=== PATIENT | male | born 1985 | race African-American/Black ===

== ENCOUNTER 2016-09-24 21:06 | Emergency (ER) | payer SELFPAY ==
[2016-09-24] MEDS ORDERED: Bicillin LA 1.2 MILLION UNITS/2 ML SYRINGE ONE (21:33)
[2016-09-24] MEDS ORDERED: Acetaminophen 500 MG TAB ONE (21:50)
[2016-09-24 21:57] LABS: Bilirubin Negative (Negative); Blood, Urine Negative (Negative); Clarity Clear (Clear); Glucose, Urine (Dipstick) Negative (Negative); Leukocyte Trace (Negative); Nitrite Negative (Negative); Protein, Urine (Dipstick) 30 mg/dL (Neg-Trace); pH, Urine 6.5 (5.0-9.0)
[2016-09-24 22:06] LABS: Bacteria/HPF Rare-Few HPF (None Seen); RBC/HPF 0-3 HPF (0-3); Squamous Epithelial 0-3 HPF (0-3)
[2016-09-24] MEDS ORDERED: Azithromycin 250 MG TAB ONE (22:28)
[2016-09-24] MEDS ORDERED: cefTRIAXone\\ROCEPHIN 500 MG VIAL ONE (22:28)
[2016-09-27 17:33] LABS: Chlamydia by PCR DETECTED (NotDetected); GC by PCR Not Detected (NotDetected)
== END 2016-09-24 22:52 | disposition home or self-care (01) ==
LOC: BURERS 21:06
DX: J02.0 Streptococcal pharyngitis (principal); N34.1 Nonspecific urethritis
CPT/HCPCS: 81003; 81015; 87086; 87491; 87591; 96372; J0561; J0696